=== PATIENT | male | born 1985 | race Two or more races ===

== ENCOUNTER → 2017-09-13 | Outpatient (CLI) | payer OTHER | LOC: M RAD 08:57 | DX: M25.572 Pain in left ankle and joints of left foot (principal) | CPT/HCPCS: 73650 ==

== ENCOUNTER → 2018-01-12 | Outpatient (CLI) | payer OTHER | LOC: M RAD 08:54 | DX: M25.562 Pain in left knee (principal) | CPT/HCPCS: 73564 ==